=== PATIENT | female | born 1960 | race African-American/Black ===

== ENCOUNTER 2016-11-25 08:10 | Inpatient (IN) | payer MEDICAID ==
[~2016-11-25] VITALS: Ht 170.2 cm; Wt 139.0 kg
[~2016-11-25 08:10] MED LIST: ASA PO; CORREG PO; LASIX PO; LISINOPRIL PO; PLAVIX PO; SPIR25TA PO; TRAZ-129 PO
[2016-11-25] MEDS ORDERED: ONDANSETRON HCL 4MG/2ML VIAL IV STA (08:46)
[2016-11-25] MEDS ORDERED: MORPHINE SULFATE 4 MG/ML CPJ (NOT FOR IM USE) IV STA (08:46)
[2016-11-25] MEDS ORDERED: ASPIRIN 81MG TABLET PO STA (08:46)
[2016-11-25 09:21] LABS: BASOPHILS % 1.5 % (0.0-2.0); EOSINOPHILS % 1.5 % (0.0-5.0); HEMATOCRIT. 39.2 % (36.0-48.0); LYMPHOCYTES % 42.9 % (20.0-50.0); MEAN CORPUSCULAR HEMOGLOBIN 29.7 pg (28.0-32.0); MEAN CORPUSCULAR VOLUME 89.5 fL (81.0-99.0); MEAN PLATELET VOLUME 10.7 fl (7.4-10.4); MONOCYTES % 9.1 % (2.0-8.0); PLATELET 224 x1000/uL (130-400); RED BLOOD CELL COUNT 4.38 mill/uL (4.2-5.4); RED CELL DISTRIBUTION WIDTH 14.1 % (11.6-14.6)
[2016-11-25 09:23] LABS: PARTIAL THROMBOPLASTIN TIME 26.1 sec (23.4-31.0); PROTHROMBIN TIME 10.6 sec (9.4-11.6)
[2016-11-25 09:24] LABS: CLARITY URINE CLOUDY (CLEAR); COLOR URINE YELLOW (YELLOW); GLUCOSE URINE NEGATIVE (NEGATIVE); KETONES URINE NEGATIVE (NEGATIVE); LEUKOCYTE ESTERASE URINE NEGATIVE (NEGATIVE); NITRITE URINE NEGATIVE (NEGATIVE); OCCULT BLOOD URINE NEGATIVE (NEGATIVE); PH URINE 7.5 (4.5-8.0); PROTEIN URINE NEGATIVE (NEGATIVE); SPECIFIC GRAVITY URINE 1.012 (1.005-1.030); UROBILINOGEN URINE 0.2 E.U./dL (0.2-1.0)
[2016-11-25 09:30] LABS: CARBON DIOXIDE 32 mEq/L (21-32); CHLORIDE 104 mEq/L (98-107)
[2016-11-25 09:35] LABS: *AMPHETAMINES SCREEN URINE NEGATIVE (NEGATIVE); *BARBITURATES SCREEN URINE NEGATIVE (NEGATIVE); *BENZODIAZEPINES SCREEN URINE NEGATIVE (NEGATIVE); *COCAINE SCREEN URINE NEGATIVE (NEGATIVE); CANNABINOID URINE SCREEN NEGATIVE (NEGATIVE); METHADONE URINE SCREEN NEGATIVE (NEGATIVE); OPIATES URINE SCREEN PRESUMTIVE POSITIVE (NEGATIVE); PHENCYCLIDINE URINE SCREEN NEGATIVE (NEGATIVE)
[2016-11-25 09:38] LABS: ETHANOL BLOOD < 10 mg/dL; TROPONIN I < 0.02 ng/mL (0.00-0.04)
[2016-11-25] MEDS ORDERED: CEFTRIAXONE 1 G PREMIX 50 ML IV ONE (12:15)
[2016-11-25 13:25] VITALS: BP 151/92
[2016-11-25] MEDS ORDERED: FAMO20TA8 PO (14:12)
[2016-11-25] MEDS ORDERED: AMLO10TA80 PO (14:12)
[2016-11-25] MEDS ORDERED: ATOR40TA70 PO (14:12)
[2016-11-25] MEDS ORDERED: IPRATROPIUM/ALBUTEROL 0.5-3(2.5)MG/3ML NEB INH PRN (14:30)
[2016-11-25] MEDS ORDERED: GUAIFENESIN 200MG/10ML SUGAR FREE UDC PO PRN (14:30)
[2016-11-25] MEDS ORDERED: ACETAMINOPHEN 325MG TABLET PO PRN (14:30)
[2016-11-25] MEDS: AMLODIPINE 10MG TABLET PO SCH (15:15)
[2016-11-25] MEDS: SPIRONOLACTONE 25MG TABLET PO SCH (15:15)
[2016-11-25 16:09] VITALS: BP 152/97
[2016-11-25] MEDS: FAMOTIDINE 20MG TABLET PO SCH (16:11)
[2016-11-25] MEDS ORDERED: KETOROLAC 30MG/ML VIAL IV NR (17:30)
[2016-11-25 20:00] VITALS: BP 156/95
[2016-11-25] MEDS: TRAZODONE HCL 50MG TABLET PO SCH (21:20)
[2016-11-25] MEDS: SODIUM CHLORIDE 0.9% INJ 3ML FLUSH IVF SCH (21:20)
[2016-11-25] MEDS: ATORVASTATIN CALCIUM 40MG TABLET PO SCH (21:20)
[2016-11-26] VITALS (8 sets, daily range): BP systolic 103–175; BP diastolic 56–103
[2016-11-26] MEDS: SODIUM CHLORIDE 0.9% INJ 3ML FLUSH IVF SCH ×3 (06:01→21:08)
[2016-11-26] MEDS: AMLODIPINE 10MG TABLET PO SCH (08:38)
[2016-11-26] MEDS: ASPIRIN 81MG EC TABLET PO SCH (08:39)
[2016-11-26] MEDS: SPIRONOLACTONE 25MG TABLET PO SCH (08:39)
[2016-11-26] MEDS: CARVEDILOL 6.25 MG TABLET PO SCH ×2 (08:39→21:29)
[2016-11-26] MEDS: FAMOTIDINE 20MG TABLET PO SCH ×2 (08:39→18:20)
[2016-11-26] MEDS: MORPHINE SULFATE 4 MG/ML CPJ (NOT FOR IM USE) IV PRN ×3 (08:40→21:29)
[2016-11-26] MEDS: CLOPIDOGREL 75MG TABLET PO SCH (08:40)
[2016-11-26] MEDS ORDERED: AMLODIPINE 10MG TABLET PO SCH (09:00)
[2016-11-26] MEDS ORDERED: REGADENOSON 0.4 MG/5 ML IV SCH (09:15)
[2016-11-26] MEDS: ENOXAPARIN 40MG/0.4ML SYR SUBCUT SCH ×3 (11:00→21:00)
[2016-11-26 11:05] LABS: T4 FREE 1.14 ng/dL (0.76-1.46)
[2016-11-26] MEDS: CLONIDINE 0.1MG TABLET PO PRN ×2 (12:02→21:28)
[2016-11-26] MEDS ORDERED: REGADENOSON 0.4 MG/5 ML IV ONE (12:38)
[2016-11-26] MEDS ORDERED: LORAZEPAM 2MG/ML CPJ IV SCH (14:45)
[2016-11-26 16:57] LABS: CREATINE KINASE 182 IU/L (26-192); CREATINE KINASE MB FRACTION 1.2 ng/mL (0.5-3.6); TROPONIN I < 0.02 ng/mL (0.00-0.04)
[2016-11-26] MEDS ORDERED: ATORVASTATIN CALCIUM 40MG TABLET PO SCH (21:00)
[2016-11-26] MEDS: TRAZODONE HCL 50MG TABLET PO SCH (21:07)
[2016-11-26] MEDS: ATORVASTATIN CALCIUM 40MG TABLET PO SCH (21:08)
[2016-11-26 23:26] LABS: CREATINE KINASE 167 IU/L (26-192); CREATINE KINASE MB FRACTION 1.2 ng/mL (0.5-3.6); TROPONIN I < 0.02 ng/mL (0.00-0.04)
[2016-11-27] VITALS: BP 137/88
[2016-11-27] MEDS: MORPHINE SULFATE 4 MG/ML CPJ (NOT FOR IM USE) IV PRN ×2 (03:34→10:41)
[2016-11-27 04:00] VITALS: BP 138/96
[2016-11-27] MEDS: SODIUM CHLORIDE 0.9% INJ 3ML FLUSH IVF SCH ×3 (05:11→20:51)
[2016-11-27 08:00] VITALS: BP 150/92
[2016-11-27] MEDS: FAMOTIDINE 20MG TABLET PO SCH ×2 (08:44→17:00)
[2016-11-27] MEDS: ASPIRIN 81MG EC TABLET PO SCH (08:44)
[2016-11-27] MEDS: SPIRONOLACTONE 25MG TABLET PO SCH (08:44)
[2016-11-27] MEDS: AMLODIPINE 10MG TABLET PO SCH (08:44)
[2016-11-27] MEDS: CARVEDILOL 6.25 MG TABLET PO SCH ×2 (08:45→20:38)
[2016-11-27] MEDS: ENOXAPARIN 40MG/0.4ML SYR SUBCUT SCH ×2 (08:51→20:42)
[2016-11-27] MEDS ORDERED: ASPIRIN 81MG TABLET PO SCH (09:00)
[2016-11-27 09:46] LABS: CREATINE KINASE 129 IU/L (26-192); CREATINE KINASE MB FRACTION 1.1 ng/mL (0.5-3.6); TROPONIN I < 0.02 ng/mL (0.00-0.04)
[2016-11-27 12:00] VITALS: BP 142/87
[2016-11-27] MEDS ORDERED: HYDROMORPHONE HCL/PF 2MG/ML CPJ IV NR (12:00)
[2016-11-27] MEDS: CLOPIDOGREL 75MG TABLET PO SCH (12:36)
[2016-11-27] MEDS ORDERED: ONDANSETRON HCL 4MG TABLET PO PRN (16:00)
[2016-11-27 16:12] VITALS: BP 149/87
[2016-11-27] MEDS: CELECOXIB 200MG CAPSULE PO SCH (18:45)
[2016-11-27 20:21] VITALS: BP 168/83
[2016-11-27] MEDS: ATORVASTATIN CALCIUM 40MG TABLET PO SCH (20:39)
[2016-11-27] MEDS: HYDROMORPHONE HCL/PF 2MG/ML CPJ IV PRN (20:41)
[2016-11-27] MEDS: TRAZODONE HCL 50MG TABLET PO SCH (20:41)
[2016-11-28] VITALS: BP 146/93
[2016-11-28] MEDS: LORAZEPAM 0.5MG TABLET PO PRN ×2 (02:26→23:56)
[2016-11-28] MEDS: HYDROMORPHONE HCL/PF 2MG/ML CPJ IV PRN ×3 (02:31→22:09)
[2016-11-28 03:55] VITALS: BP 138/86
[2016-11-28] MEDS: SODIUM CHLORIDE 0.9% INJ 3ML FLUSH IVF SCH ×3 (06:06→22:13)
[2016-11-28 08:00] VITALS: BP 156/83
[2016-11-28] MEDS: CLOPIDOGREL 75MG TABLET PO SCH (08:08)
[2016-11-28] MEDS: SPIRONOLACTONE 25MG TABLET PO SCH (08:09)
[2016-11-28] MEDS: FAMOTIDINE 20MG TABLET PO SCH ×2 (08:10→16:40)
[2016-11-28] MEDS: CARVEDILOL 6.25 MG TABLET PO SCH ×2 (08:10→22:13)
[2016-11-28] MEDS: ASPIRIN 81MG TABLET PO SCH (08:11)
[2016-11-28] MEDS: CELECOXIB 200MG CAPSULE PO SCH (08:11)
[2016-11-28] MEDS: ENOXAPARIN 40MG/0.4ML SYR SUBCUT SCH ×2 (08:11→21:00)
[2016-11-28] MEDS: AMLODIPINE 10MG TABLET PO SCH (08:11)
[2016-11-28] MEDS ORDERED: CLOPIDOGREL 75MG TABLET PO SCH (09:00)
[2016-11-28 12:00] VITALS: BP 147/86
[2016-11-28 17:31] VITALS: BP 143/86
[2016-11-28 20:00] VITALS: BP 138/80
[2016-11-28] MEDS: DOCUSATE SODIUM 100MG CAPSULE PO SCH (22:11)
[2016-11-28] MEDS: TRAZODONE HCL 50MG TABLET PO SCH (22:12)
[2016-11-28] MEDS: ATORVASTATIN CALCIUM 40MG TABLET PO SCH (22:12)
[2016-11-29] VITALS (12 sets, daily range): BP systolic 111–148; BP diastolic 67–87
[2016-11-29] MEDS: SODIUM CHLORIDE 0.9% INJ 3ML FLUSH IVF SCH ×3 (06:54→21:14)
[2016-11-29 07:05] LABS: HEMATOCRIT 38.5 % (36.0-48.0); HEMOGLOBIN 13.1 g/dL (12.0-16.0); MEAN CORPUSCULAR HEMOGLOBIN 29.8 pg (28.0-32.0); PLATELET 186 x1000/uL (130-400); RED BLOOD CELL COUNT 4.38 mill/uL (4.2-5.4); RED CELL DISTRIBUTION WIDTH 13.9 % (11.6-14.6)
[2016-11-29] MEDS ORDERED: DIPHENHYDRAMINE 50MG/ML VIAL IV NR (07:20)
[2016-11-29] MEDS ORDERED: FAMOTIDINE 20MG/2ML VIAL IV NR (07:22)
[2016-11-29] MEDS ORDERED: LIDOCAINE HCL 1% 20ML VIAL (Pyxis) INJ ONE (07:30)
[2016-11-29] MEDS ORDERED: METHYLPREDNISOLONE SOD SUCC 125 MG/2 ML VIAL IV ONE (07:30)
[2016-11-29] MEDS ORDERED: DIPHENHYDRAMINE 50MG/ML VIAL ONE (07:30)
[2016-11-29] MEDS ORDERED: HYDROCORTISONE SOD SUCCINATE 250 MG/2 ML VIAL IV NR (07:30)
[2016-11-29] MEDS ORDERED: HYDROCORTISONE SOD SUCCINATE 250 MG/2 ML VIAL ONE (07:30)
[2016-11-29] MEDS ORDERED: FAMOTIDINE 20MG/2ML VIAL IV ONE (07:31)
[2016-11-29] MEDS ORDERED: FENTANYL CITRATE/PF 50MCG/ML 2ML VIAL ONE (07:56)
[2016-11-29] MEDS ORDERED: MIDAZOLAM HCL 2 MG/2 ML VIAL ONE ×2 (07:56→08:14)
[2016-11-29] MEDS ORDERED: IOHEXOL-300 100 ML BOTTLE ONE (07:59)
[2016-11-29] MEDS ORDERED: HYDRALAZINE 20MG/ML VIAL ONE ×2 (08:20→08:46)
[2016-11-29] MEDS: SPIRONOLACTONE 25MG TABLET PO SCH (08:22)
[2016-11-29] MEDS: ASPIRIN 81MG TABLET PO SCH (08:23)
[2016-11-29] MEDS: CARVEDILOL 6.25 MG TABLET PO SCH ×2 (08:23→20:46)
[2016-11-29] MEDS: AMLODIPINE 10MG TABLET PO SCH (08:23)
[2016-11-29] MEDS: CELECOXIB 200MG CAPSULE PO SCH (08:23)
[2016-11-29] MEDS: DOCUSATE SODIUM 100MG CAPSULE PO SCH ×2 (08:23→17:06)
[2016-11-29] MEDS: CLOPIDOGREL 75MG TABLET PO SCH (08:24)
[2016-11-29] MEDS: FAMOTIDINE 20MG TABLET PO SCH ×2 (08:24→17:06)
[2016-11-29] MEDS: ENOXAPARIN 40MG/0.4ML SYR SUBCUT SCH ×2 (08:24→20:50)
[2016-11-29] MEDS ORDERED: NITROGLYCERIN 0.4MG TABLET SL SL ONE (08:47)
[2016-11-29] MEDS ORDERED: ONDANSETRON HCL 4MG/2ML VIAL ONE (08:58)
[2016-11-29] MEDS ORDERED: ATROPINE SULFATE 1MG/10ML SYR IV PRN (09:45)
[2016-11-29] MEDS ORDERED: ACETAMINOPHEN 325MG TABLET PO PRN (09:45)
[2016-11-29] MEDS: HYDROMORPHONE HCL/PF 2MG/ML CPJ IV PRN ×2 (11:32→17:47)
[2016-11-29] MEDS: DIPHENHYDRAMINE 50MG/ML VIAL IV PRN (12:41)
[2016-11-29] MEDS: HYDROCODONE/ACETAMINOPHEN 5/325MG TABLET PO PRN ×2 (15:32→22:53)
[2016-11-29] MEDS: TRAZODONE HCL 50MG TABLET PO SCH (20:45)
[2016-11-29] MEDS: ATORVASTATIN CALCIUM 40MG TABLET PO SCH (20:50)
[2016-11-30] VITALS (10 sets, daily range): BP systolic 103–152; BP diastolic 65–91
[2016-11-30] MEDS: HYDROMORPHONE HCL/PF 2MG/ML CPJ IV PRN ×2 (03:12→10:29)
[2016-11-30] MEDS: SODIUM CHLORIDE 0.9% INJ 3ML FLUSH IVF SCH ×2 (06:26→14:40)
[2016-11-30] MEDS: DIPHENHYDRAMINE 50MG/ML VIAL IV PRN (06:26)
[2016-11-30 07:13] LABS: BASOPHILS % 0.6 % (0.0-2.0); HEMATOCRIT. 37.9 % (36.0-48.0); HEMOGLOBIN. 12.2 g/dL (12.0-16.0); LYMPHOCYTES % 39.7 % (20.0-50.0); MEAN CORPUSCULAR HEMOGLOBIN 29.5 pg (28.0-32.0); MEAN CORPUSCULAR VOLUME 91.2 fL (81.0-99.0); MONOCYTES % 11.1 % (2.0-8.0); NEUTROPHILS % 47.6 % (40.0-76.0); PLATELET 158 x1000/uL (130-400); RED BLOOD CELL COUNT 4.15 mill/uL (4.2-5.4); RED CELL DISTRIBUTION WIDTH 14.2 % (11.6-14.6)
[2016-11-30] MEDS: AMLODIPINE 10MG TABLET PO SCH (08:56)
[2016-11-30] MEDS: CELECOXIB 200MG CAPSULE PO SCH (08:57)
[2016-11-30] MEDS: CLOPIDOGREL 75MG TABLET PO SCH (08:57)
[2016-11-30] MEDS: ENOXAPARIN 40MG/0.4ML SYR SUBCUT SCH (08:58)
[2016-11-30] MEDS: SPIRONOLACTONE 25MG TABLET PO SCH (08:58)
[2016-11-30] MEDS: CARVEDILOL 6.25 MG TABLET PO SCH (08:58)
[2016-11-30] MEDS: FAMOTIDINE 20MG TABLET PO SCH ×2 (08:58→17:48)
[2016-11-30] MEDS: DOCUSATE SODIUM 100MG CAPSULE PO SCH ×2 (08:58→17:48)
[2016-11-30] MEDS: ASPIRIN 81MG TABLET PO SCH (08:59)
[2016-11-30 09:16] LABS: CHLORIDE 102 mEq/L (98-107)
[2016-11-30 09:21] LABS: CARBON DIOXIDE 28 mEq/L (21-32)
== END 2016-11-30 19:30 | disposition home or self-care (01) | DRG 191 ==
LOC: ER 08:29 → ENRESERV 10:02 → 8WST 12:19 → EDBEDREQTM 12:21 → EDBEDREQ 12:21 → 3WST 11-29 09:15
PROVIDERS: ADMIT Internal Medicine; ATTEND Internal Medicine
PROC: 4A023N7 Measurement of Cardiac Sampling and Pressure, Left Heart, Percutaneous Approach (ICD-10-PCS; principal; 2016-11-29)
PROC: B2111ZZ Fluoroscopy of Multiple Coronary Arteries using Low Osmolar Contrast (ICD-10-PCS; 2016-11-29)
DX: I24.9 Acute ischemic heart disease, unspecified (principal); I11.0 Hypertensive heart disease with heart failure; Z68.42 Body mass index [BMI] 45.0-49.9, adult; I50.9 Heart failure, unspecified; E66.01 Morbid (severe) obesity due to excess calories; M48.02 Spinal stenosis, cervical region; I25.10 Atherosclerotic heart disease of native coronary artery without angina pectoris; E78.5 Hyperlipidemia, unspecified; M47.9 Spondylosis, unspecified; M54.10 Radiculopathy, site unspecified; G47.33 Obstructive sleep apnea (adult) (pediatric); Z82.49 Family history of ischemic heart disease and other diseases of the circulatory system; Z95.5 Presence of coronary angioplasty implant and graft; Z91.041 Radiographic dye allergy status; Z79.899 Other long term (current) drug therapy
CPT/HCPCS: 36415; 71010; 72141; 78452; 80048; 80053; 80061; 80305; 81001; 81025; 82550; 82553; 83036; 83605; 83690; 83735; 83880; 84439; 84443; 84484; 85025; 85027; 85379; 85610; 85730; 87040; 93005; 93017; 93306; 93458; 93970; 96365; 96375; 99285; A9500; C1760; C1769; C1887; C1893; G0482; J0360; J0696; J1170; J1200; J1644; J1650; J1720; J1885; J2060; J2250; J2270; J2405; J2785; J3010; J3490; Q0162; Q9967

== ENCOUNTER 2023-02-05 03:51 | Emergency (ER) | payer MEDICAID ==
[~2023-02-05] VITALS: Ht 170.2 cm; Wt 137.0 kg
[~2023-02-05 03:51] MED LIST changes: +COR12 PO; -CORREG PO; -LISINOPRIL PO; +SACU1TAB PO; -SPIR25TA PO; -TRAZ-129 PO
[2023-02-05 04:06] VITALS: O2SAT 97
[2023-02-05 04:37] LABS: BASOPHILS % 1.1 % (0.0-2.0); EOSINOPHILS % 0.6 % (0.0-5.0); HEMATOCRIT. 39.6 % (36.0-48.0); HEMOGLOBIN. 12.8 g/dL (12.0-16.0); LYMPHOCYTES % 36.3 % (20.0-50.0); MEAN CORPUSCULAR HEMOGLOBIN 30.2 pg (28.0-32.0); MEAN CORPUSCULAR HGB CONC 32.4 g/dL (31.0-37.0); MEAN CORPUSCULAR VOLUME 93.2 fL (81.0-99.0); MEAN PLATELET VOLUME 9.9 fl (7.4-10.4); MONOCYTES % 9.5 % (2.0-8.0); NEUTROPHILS % 52.5 % (40.0-76.0); PLATELET 176 x1000/uL (130-400); RED BLOOD CELL COUNT 4.25 mill/uL (4.2-5.4); RED CELL DISTRIBUTION WIDTH 13.9 % (11.6-14.6); WHITE BLOOD COUNT 4.9 x1000/uL (4.5-11.0)
[2023-02-05 04:50] LABS: ALANINE AMINOTRANSFERASE 15 IU/L (10-49); ASPARTATE AMINOTRANSFERASE 15 IU/L (<34); BILIRUBIN TOTAL 1.1 mg/dL (0.1-1.0); CALCIUM 9.5 mg/dL (8.7-10.4); CARBON DIOXIDE 29 mEq/L (21-32); CHLORIDE 104 mEq/L (98-107); CREATININE 0.8 mg/dL (0.6-1.0); GLUCOSE 115 mg/dL (70-105); POTASSIUM 3.5 mEq/L (3.5-5.1); PROTEIN TOTAL 7.4 g/dL (6.0-8.3); SODIUM 140 mEq/L (136-145); TROPONIN I HIGH SENSITIVITY 16 ng/L (3.0-34); UREA NITROGEN BLOOD 19 mg/dL (9-23)
[2023-02-05 05:05] LABS: INR 1.1; PROTHROMBIN TIME 11.5 sec (9.6-11.0)
[2023-02-05] MEDS ORDERED: ASPIRIN 325MG EC TABLET PO NR (06:30)
[2023-02-05] MEDS ORDERED: GUAIFENESIN 200MG/10ML SUGAR FREE UDC PO PRN (11:45)
[2023-02-05] MEDS ORDERED: ACETAMINOPHEN 325MG TABLET PO PRN ×2 (11:45)
[2023-02-05] MEDS ORDERED: DIPHENHYDRAMINE 50MG/ML VIAL IV PRN (11:45)
[2023-02-05] MEDS ORDERED: MAGNESIUM/ALUMINUM HYDROXIDE/SIMETHICONE 30ML UDC PO PRN (11:45)
[2023-02-05] MEDS ORDERED: CLONIDINE 0.1MG TABLET PO PRN (11:45)
[2023-02-05] MEDS ORDERED: BUMETANIDE 1MG/4ML VIAL IV SCH (11:45)
[2023-02-05] MEDS ORDERED: ZOLPIDEM TARTRATE 5MG TABLET PO PRN (11:45)
[2023-02-05] MEDS ORDERED: ONDANSETRON HCL 4MG/2ML INJ IV PRN (11:45)
[2023-02-05] MEDS ORDERED: CLOPIDOGREL 75MG TABLET PO SCH (12:45)
[2023-02-05] MEDS ORDERED: FUROSEMIDE 40MG TABLET PO SCH (12:45)
[2023-02-05] MEDS ORDERED: NON FORMULARY PATIENT HOME MED XX SCH (12:45)
[2023-02-05 12:57] LABS: TROPONIN I HIGH SENSITIVITY 16 ng/L (3.0-34)
[2023-02-05] MEDS ORDERED: SODIUM CHLORIDE 0.9% INJ 3ML FLUSH IVF SCH (14:00)
[2023-02-05 14:40] LABS: CLARITY URINE CLEAR (CLEAR); COLOR URINE YELLOW (YELLOW); GLUCOSE URINE NEGATIVE (NEGATIVE); KETONES URINE NEGATIVE (NEGATIVE); LEUKOCYTE ESTERASE URINE NEGATIVE (NEGATIVE); NITRITE URINE NEGATIVE (NEGATIVE); OCCULT BLOOD URINE 2+ (NEGATIVE); PH URINE 5.5 (4.5-8.0); PROTEIN URINE 1+ (NEGATIVE)
[2023-02-05 14:43] VITALS: BP 165/98; PULSE 89; RESP 18; TEMP 98.6
[2023-02-05 15:00] LABS: SQUAMOUS EPITHELIAL CELL URINE FEW /lpf (RARE/1+); YEAST URINE NONE SEEN
[2023-02-05 15:01] LABS: BACTERIA URINE FEW; WBC URINE 0-2 /hpf (0-2)
[2023-02-05] MEDS ORDERED: SACUBITRIL/VALSARTAN 24MG/26MG TABLET PO SCH (17:00)
[2023-02-05] MEDS ORDERED: ENOXAPARIN 40MG/0.4ML SYR SUBCUT SCH (21:00)
[2023-02-05] MEDS ORDERED: CARVEDILOL 12.5MG TABLET PO SCH (21:00)
[2023-02-06] MEDS ORDERED: SPIRONOLACTONE 25MG TABLET PO SCH (09:00)
[2023-02-06] MEDS ORDERED: ASPIRIN 81MG EC TABLET PO SCH (09:00)
== END 2023-02-05 17:18 | disposition left against medical advice (07) ==
LOC: ER 03:51
DX: I24.9 Acute ischemic heart disease, unspecified (principal); I11.0 Hypertensive heart disease with heart failure; I50.9 Heart failure, unspecified
CPT/HCPCS: 80053; 81003; 83880; 85025; 85610; 85730; 84484; 36415; 71045; 93005; 96361; 96374; 99285; J3490; Z7610